=== PATIENT | male | born 1990 | race Caucasian/White ===

== ENCOUNTER 2025-07-11 16:39 | Emergency (ER) | payer OTHER ==
[~2025-07-11] VITALS: Ht 182.9 cm; Wt 90.3 kg
[2025-07-11 16:56] LABS: BLOOD/HGB, URINE LARGE (Negative); KETONE, URINE TRACE (Negative); LEUK ESTERASE, URINE TRACE (negative); NITRITE, URINE POSITIVE (negative)
[2025-07-11] MEDS ORDERED: SODIUM CHLORIDE 0.9% 1,000 ML IV PRN ×2 (17:00→18:00)
[2025-07-11 17:08] LABS: BASOPHILS 0.8 % (0.2-1.2); EOSINOPHILS 1.6 % (0.8-7.0); LYMPHOCYTES 19.9 % (21.8-53.1); MCH 30.5 PG (25.7-32.2); MCHC 34.9 g/dL (32.3-36.5); MCV 87.3 fL (79.0-92.2); MONOCYTES 9.0 % (5.3-12.2); NEUTROPHILS 68.4 % (34.0-67.9); RBC 4.66 M/uL (4.63-6.08)
[2025-07-11] MEDS ORDERED: ATACAND4 MG PO (17:08)
[2025-07-11] MEDS ORDERED: IMITREX50 MG PO (17:08)
[2025-07-11] MEDS ORDERED: VITAMIN D325 MC2 PO (17:09)
[2025-07-11 17:11] LABS: BACTERIA, URINE 2+ /hpf (negative); CASTS, URINE NONE SEEN \\lpf; CRYSTALS, URINE NONE SEEN (0-1+); EPITHELIAL CELLS, URINE SQUAMOUS 1+ /lpf (0-1+); REFLEX CULTURE, URINE Yes (No)
[2025-07-11 17:31] LABS: INR 1.09 (0.80-1.30); PROTIME 13.4 Sec (11.2-14.2)
[2025-07-11 17:41] LABS: ALCOHOL, MEDICAL <3 ng/dL (<3); ALT (SGPT) 56.0 U/L (14-59); AST (SGOT) 39.0 U/L (15-37); GLOMERULAR FILTRATION RATE,EST 86.0 mL/min (>60); PROTEIN, TOTAL 7.7 g/dL (6.4-8.2); UREA NITROGEN 14.0 mg/dL (7-18)
[2025-07-11 18:25] LABS: AMPHETAMINES, URINE NEGATIVE (NEGATIVE); BARBITURATES, URINE NEGATIVE (NEGATIVE); BENZODIAZEPINE, URINE NEGATIVE (NEGATIVE); CANNABINOID, URINE NEGATIVE (NEGATIVE); COCAINE, URINE NEGATIVE (NEGATIVE); ECSTASY, URINE NEGATIVE (NEGATIVE); FENTANYL, URINE NEGATIVE (NEGATIVE); METHADONE, URINE NEGATIVE (NEGATIVE); OPIATES, URINE NEGATIVE (NEGATIVE); OXYCODONE, URINE NEGATIVE (NEGATIVE); PHENCYCLIDINE, URINE NEGATIVE (NEGATIVE)
[2025-07-11] MEDS ORDERED: KETOROLAC TROMETHAMINE 15 MG/ML VIAL IV ONE (19:30)
[2025-07-11] MEDS ORDERED: CEFDINIR300 MG PO (19:33)
[2025-07-11] MEDS ORDERED: CYCLOBENZAPRINE10 MG PO (19:33)
[2025-07-11 20:55] VITALS: BP 113/68
== END 2025-07-11 20:55 | disposition home or self-care (01) ==
LOC: ED 16:39
PROVIDERS: Emergency Medicine
DX: N39.0 Urinary tract infection, site not specified (principal); J02.9 Acute pharyngitis, unspecified; Z87.442 Personal history of urinary calculi
CPT/HCPCS: 36415; 74176; 80053; 80307; 81001; 82550; 83690; 83880; 85025; 85610; 87088; 87651; 96365; 96375; 99284-25; G0480; J0696; J1885; J7030